=== PATIENT | male | born 1940 | race Caucasian/White ===

== ENCOUNTER 2018-05-15 08:50 | Day surgery (SDC) | payer MEDICARE, OTHER ==
[2018-05-15] VITALS (10 sets, daily range): BP systolic 96–120; BP diastolic 53–69
[~2018-05-15] VITALS: Ht 180.3 cm; Wt 95.7 kg
[2018-05-15] MEDS ORDERED: sodium bicarbonate (8.4%) inj. 150 ML in dextrose 5%-water 1,000 ML IV ONE (09:15)
[2018-05-15] MEDS ORDERED: diphenhydrAMINE 25mg capsule PO PRN (09:15)
[2018-05-15] MEDS ORDERED: normal saline 1,000 ML IV SCH (09:25)
[2018-05-15] MEDS ORDERED: RABE20TA28 PO (09:30)
[2018-05-15] MEDS ORDERED: TADA20TA PO (09:30)
[2018-05-15] MEDS ORDERED: ALEN70TA60 PO (09:30)
[2018-05-15] MEDS ORDERED: ASPI-1265 PO (09:30)
[2018-05-15] MEDS ORDERED: RANI150C4 PO (09:30)
[2018-05-15] MEDS ORDERED: HYDR12.5 PO (09:30)
[2018-05-15] MEDS ORDERED: ICOS1CAP PO (09:30)
[2018-05-15] MEDS ORDERED: IBUP-1984 PO (09:30)
[2018-05-15 10:08] LABS: BASOPHILS % (AUTO) 0.8 % (0-1); EOSINOPHILS # (AUTO) 0.2 X10'3 (0-0.9); EOSINOPHILS % (AUTO) 2.7 % (0-6); HEMATOCRIT 44.8 % (42.0-52.0); HEMOGLOBIN 14.7 g/dl (14.0-17.9); LYMPHOCYTES # (AUTO) 1.2 X10'3 (1.1-4.8); LYMPHOCYTES % (AUTO) 21.5 % (21-51); MEAN CORPUSCULAR HEMOGLOBIN 29.1 PG (27.0-31.0); MEAN CORPUSCULAR HGB CONC 32.9 g/dL (33.0-36.5); MEAN CORPUSCULAR VOLUME 88.4 FL (78-98); MEAN PLATELET VOLUME 7.6 FL (7.4-10.4); MONOCYTES # (AUTO) 0.6 X10'3 (0-0.9); MONOCYTES % (AUTO) 11.1 % (2-12); NEUTROPHILS # (AUTO) 3.6 X10'3 (1.8-7.7); NEUTROPHILS % (AUTO) 63.9 % (42-75); PLATELET COUNT 218 X10'3 (140-440); RED BLOOD COUNT 5.07 X10'6 (4.70-6.10); RED CELL DISTRIBUTION WIDTH 15.5 % (11.5-14.5); WHITE BLOOD COUNT 5.7 X10'3 (4.5-11.0)
[2018-05-15 10:14] LABS: ALBUMIN 3.3 G/DL (3.4-5.0); ANION GAP 7 (8-16); BLOOD UREA NITROGEN 26 MG/DL (7-18); BUN/CREATININE RATIO 19.4 (5.4-32.0); CHLORIDE 107 MMOL/L (99-107); CREATININE 1.34 MG/DL (0.60-1.10); GLUCOSE 123 MG/DL (70-104); MAGNESIUM 1.9 MG/DL (1.5-2.4); POTASSIUM 3.8 MMOL/L (3.5-5.1); SODIUM 140 MMOL/L (135-145); TOTAL CARBON DIOXIDE 26.4 MMOL/L (24-32); eGFR 51 ML/MIN
[2018-05-15 10:18] LABS: PROTHROMBIN TIME 10.3 SECONDS (9.0-12.0)
[2018-05-15] MEDS ORDERED: fentaNYL/PF 50MCG/1 ML 2ML syringe ONE (10:20)
[2018-05-15] MEDS ORDERED: midazolam 2 mg/2 ml injection ONE (10:20)
[2018-05-15] MEDS ORDERED: iohexol 350 MG/ML 50ML vial IV ONE (10:21)
[2018-05-15] MEDS ORDERED: iohexol 350MG/ML 100ml bottle IV ONE (10:21)
[2018-05-15] MEDS ORDERED: LIDOcaine 1% (10mg/ml)w/preservative injection 20ml MDV ONE (10:21)
--- NOTE | 2018-05-15 12:03 | NUR ---
WHEN PT ARRIVED BACK ON FLOOR. APPROX 1120. PT WAS CONTINUING A 500ML BOLUS THAT HAD BEEN STARTED IN THE TRANSIT MIXER OPERATOR. PT HAS RECEIVED 200ML, CONTINUING WITH 300ML UNTIL COMPLETE. MEDICATIONS BEING ADMINISTERED ORDERED. PT IS NOW LYING IN BED, APPEARS TO BE COMFORTABLE. AT BEDSIDE ASSISTING PT TO EAT A SANDWICH. VS STABLE CHARTED. WILL CONTINUE TO MONITOR.
[2018-05-15] MEDS ORDERED: ibuprofen 200mg tablet PO ONE (13:30)
[2018-05-15] MEDS ORDERED: ketorolac tromethamine 15mg/ml inj. IV ONE (13:40)
== END 2018-05-15 16:50 | disposition home or self-care (01) ==
LOC: SSTAY O 08:50
PROVIDERS: ATTEND Internal Medicine Cardiovascular Disease
DX: R94.39 Abnormal result of other cardiovascular function study (principal); I10 Essential (primary) hypertension; E78.9 Disorder of lipoprotein metabolism, unspecified; I47.2 Ventricular tachycardia; I47.1 Supraventricular tachycardia; E78.5 Hyperlipidemia, unspecified; K21.9 Gastro-esophageal reflux disease without esophagitis; Z79.82 Long term (current) use of aspirin; Z23 Encounter for immunization; Z79.899 Other long term (current) drug therapy; Z85.828 Personal history of other malignant neoplasm of skin; Z85.51 Personal history of malignant neoplasm of bladder; Z98.890 Other specified postprocedural states; Z82.3 Family history of stroke; Z88.8 Allergy status to other drugs, medicaments and biological substances
CPT/HCPCS: 36415; 80048; 83735; 85025; 85610; 90662; 93005; 93458; 99152; 99153; A6257; J1644; J1885; J2001; J2250; J3010; J7030; Q0163; Q9967; A4620; C1769; C1894